=== PATIENT | male | born 1950 | race Caucasian/White ===

== ENCOUNTER → 2017-01-08 | Day surgery (SDC) | payer OTHER ==
[~2017-01-08] MED LIST: A THRU Z SELEC1 EAC6 PO; CALCIUM1 TAB.CHEW PO; LASIX20 MG PO; MULTI VITAMIN1 EACH PO; PERCOCET 10/3251 TAB PO; VITAL-D RX TABL1 TAB PO
--- NOTE | ~2017-01-08 | OR ---
Unit #: [id number] #: [id number] Patient: AL JENNINGS [id number] [address] [place], [place] [address] [id number] O MR#: [id number] NAME: AL JENNINGS ROOM: Date of Procedure: 01/08/2017 Admission Date: 01/08/2017 Surgeon: Nate Fulton M.D. : 1950 Attending Physician: Nate Fulton M.D. Referring Physician: Nate Fulton M.D. Primary Care Physician: Devorah Whiteside M.D. OPERATIVE REPORT PREOPERATIVE DIAGNOSIS Malfunction of intrathecal pain pump. POSTOPERATIVE DIAGNOSIS Malfunction of intrathecal pain pump. PROCEDURES PERFORMED 1. Revision and implantation of pain pump, SynchroMed. 2. Physician filling a pump. SURGICAL INDICATION AND RATIONALE Mr. Al Jennings is a pleasant 66-year-old gentleman who has had a pain pump for at least 5 years and he was referred to me by Dr. Ze Wise to replace this patient's SynchroMed pain pump. The patient has received notification from his pain doctor that the pump battery life has been completed and that pump would automatically terminate within 24 hours. Hence, this procedure is done as an emergency. This patient needs his pain pump replaced, otherwise he will undergo lethal withdrawal. The patient's pump contains a combination of hydromorphone and clonidine. The patient's pump presently contains hydromorphone at 50 mcg per mL and clonidine at 500 mcg/mL and he has been getting hydromorphone at a concentration of 12.985 mg per day and clonidine at 129.85 mcg per day. The patient's reservoir volume is presently at 17 mL since I had taken out the pump medication from the previous pump and put it into this present pump. The patient was seen in my office earlier today and a complete evaluation and examination was done for this patient. I also interrogated his pump, which verified the dosage that I had mentioned above. I have also performed fluoroscopy to see that the catheter is in the intrathecal space. I also did a dye study using this pump and saw that the catheter tip was at the T12 vertebral level. I also confirmed that I was able to obtain CSF, which also reassures me that the catheter pathway is intact. The patient also has undergone an education process extensively regarding the pros, cons, and consent decree discussed in great detail and I offered the patient the risks, benefits, and alternatives. The patient understands the consent decree and also received an education through Zoë Hannon with [employer] who also discussed in great detail the consent decree and the patient did not have any questions regarding this decree. The patient was very keen to have this device replaced as he knows that his pump will stop working within 24 hours. DESCRIPTION OF PROCEDURE After obtaining full informed consent and after discussion with the Unit #: [id number] #: [id number] Patient: AL JENNINGS patient possible complication, including infection, bleeding, paralysis, mild headaches, and other perioperative complications were discussed with the patient and consent was obtained by the preoperative nurse. The patient was then taken back to the operating room where general anesthesia was induced on the gurney and the patient was then positioned in the prone position with the help of the anesthesiologist. The patient received 1.5 g of vancomycin 30 minutes before entering the operating room. The patient was then prepped and draped in the usual fashion. Standard monitors were already placed on the patient. Then I used a combination of lidocaine and Marcaine to anesthetize the skin and an incision was made with a #8 blade without much difficulty. I was able to locate the previous pump and deliver it out of the pump pocket. This pocket was then copiously irrigated with irrigant. I then aspirated the remaining 17 mL of the clonidine and hydromorphone combination and then primed the new pump with the same drug. I then placed vancomycin powder in the lining of the pocket and connected the Indura catheter to the new SynchroMed to pump. I then aspirated the sideport and I was able to obtain CSF. The pump was then carefully placed back into the pocket and the capsule of the pump was then sutured using interrupted 3-0 Vicryl sutures. I then closed the incision using interrupted 3-0 Vicryl sutures in 2 layers. The skin was approximated with lyndon and a Telfa Tegaderm dressing was placed. The patient was then brought back to the recovery room for neurological monitoring. PLAN OF CARE The patient had an uneventful recovery. I will discharge home neurologically intact with plans to return to Dr. Wise in 7 days to have the lyndon removed. I have started his pump out at the exact same dose that he was before, which is 12.958 mg of hydromorphone along with 1.85 mcg per day of clonidine. The patient has been told all the do's and don'ts regarding postoperative recovery and to contact my office if he has any concerns regarding this surgery. The patient does have oral Percocet given to him by Dr. Wise and I had instructed the patient to take that medicine judiciously for any incisional pain. The patient acknowledges the understanding of all the risks, benefits, and general alternatives available and would like to proceed. Dictated by... Marsha Zazueta/adam TD: 01/09/2017 01:11 JOB #: [id number] CC: Ze Wise M.D. OPERATIVE REPORT X Nate Fulton MD X PROCEDURE OPERATIVE NOTE
--- NOTE | ~2017-01-08 | EKG ---
PATIENT: CHRISTA CLINTON UNIT #: [id number] Ventricular Rate: 59 BPM Atrial Rate: 59 BPM P-R Interval: 162 ms QRS Duration: 108 ms Q-T Interval: 436 ms QTC Calculation(Bezet): 431 ms P Sidon: 38 degrees Calculated R Sidon: -57 degrees Calculated T Sidon: 30 degrees Diagnosis Line: Sinus bradycardia Diagnosis Line: Left anterior fascicular block Diagnosis Line: Abnormal ECG Diagnosis Line: No previous ECGs available Diagnosis Line: Confirmed by TATA JUSTIN MD ([id number]) on Diagnosis Line: 01/09/2017 4:11:30 PM INTERPRETING MD: NHAN GREWAL
[2017-01-08 15:37] LABS: BLOOD UREA NITROGEN 13 mg/dL (9-23); BUN/CREATININE RATIO 14.44; CALCIUM SERUM 9.1 mg/dL (8.4-10.2); CARBON DIOXIDE 26 mmol/L (22-31); CHLORIDE 103 mmol/L (100-111); CREATININE SERUM 0.9 mg/dL (0.6-1.4); GLOM FILT RATE Estimated ABOVE60 mL/min (>60); GLUCOSE FASTING 122 mg/dL (70-110); POTASSIUM 4.1 mmol/L (3.5-5.1); SODIUM 137 mmol/L (135-145)
== END | disposition home or self-care (01) ==
LOC: CSUR 13:48
PROVIDERS: Specialist
DX: T85.695A Other mechanical complication of other nervous system device, implant or graft, initial encounter (principal); M19.90 Unspecified osteoarthritis, unspecified site; F17.210 Nicotine dependence, cigarettes, uncomplicated; Z88.0 Allergy status to penicillin; Z98.1 Arthrodesis status; Z98.890 Other specified postprocedural states
CPT/HCPCS: 80048; 93005; C1772; J0330; J1170; J2250; J3010; J3370